=== PATIENT | male | born 1995 | race African-American/Black ===

== ENCOUNTER 2018-02-02 22:29 | Emergency (ER) | payer MEDICAID ==
[~2018-02-02] VITALS: Ht 190.5 cm; Wt 87.5 kg
[2018-02-02 22:39] VITALS: BP 123/66
[2018-02-02 23:16] LABS: Basophils # (auto) 0.1 uL; Basophils % (auto) 2.5 % (0.0-2.0); Eosinophils # (auto) 0.2 uL; Hemoglobin 13.7 g/dL (13.5-17.5); Lymphocytes # (auto) 1.5 uL; Mean Corpuscular Hemoglobin 32.1 pg (28.0-32.0); Mean Corpuscular Hgb Conc. 33.3 g/dL (32.0-36.0); Mean Corpuscular Volume 96.4 fL (80.0-100.0); Monocytes # (auto) 0.5 uL; Monocytes % (auto) 13.1 % (0.0-12.0); Neutrophils # (auto) 1.7 uL; Neutrophils % (auto) 42.4 % (37.0-80.0); Nucleated Red Blood Cells % 0.2 %; Platelet Count (auto) 236 10^3/uL (140-450); Red Blood Cells 4.25 10^6/uL (4.5-5.90); Red Cell Distribution Width 12.7 % (11.8-14.3); White Blood Cell 4.1 10^3/uL (4.4-10.8)
[2018-02-02 23:46] LABS: Albumin 3.9 g/dL (3.4-5.0); Calcium 9.2 mg/dL (8.5-10.1); Potassium 4.3 mmol/L (3.5-5.1)
[2018-02-02 23:51] LABS: Bilirubin, Total 0.6 mg/dL (0.2-1.0); Total Protein 8.1 g/dL (6.4-8.2)
== END 2018-02-03 03:52 | disposition home or self-care (01) ==
LOC: ER 22:36
DX: R74.8 Abnormal levels of other serum enzymes (principal); Z88.6 Allergy status to analgesic agent
CPT/HCPCS: 36415; 80053; 85025

== ENCOUNTER 2022-03-17 20:52 | Inpatient (IN) | payer MEDICAID ==
[~2022-03-17] VITALS: Ht 182.9 cm; Wt 80.3 kg
[2022-03-17] MEDS ORDERED: KETAMINE HCL 10 ML ONE (21:02)
[2022-03-17] MEDS ORDERED: ROCURONIUM 10MG/ML 10ML VIAL IV ONE ×2 (21:02→21:30)
[2022-03-17] MEDS ORDERED: PROPOFOL 100 ML IV ONE (21:10)
[2022-03-17] MEDS ORDERED: PROPOFOL 100 ML IV SCH (21:30)
[2022-03-17] MEDS ORDERED: KETAMINE 50mg/ML 10ml Vial (500mg/10ml) IV ONE (21:30)
[2022-03-17 22:10] LABS: Hematocrit 30.5 % (41.0-53.0); Mean Corpuscular Hemoglobin 30.5 pg (28.0-32.0); Mean Corpuscular Hgb Conc. 29.6 g/dL (32.0-36.0); Mean Corpuscular Volume 103.2 fL (80.0-100.0); Red Blood Cells 2.96 10^6/uL (4.5-5.90); Red Cell Distribution Width 17.1 % (11.8-14.3); White Blood Cell 7.8 10^3/uL (4.4-10.8)
[2022-03-17 22:13] LABS: Band Neutrophils % (manual) 0; Basophils % (manual) 0 (0.0-2.0); Blast Cells 0; Eosinophils % (manual) 0 (0-7); Myelocytes % 0; Promyelocytes % 0; Reactive Lymphocytes 0
[2022-03-17 22:14] LABS: Albumin 1.9 g/dL (3.4-5.0); BUN/Creatinine Ratio 4.4; Calcium 7.9 mg/dL (8.5-10.1); Potassium 3.5 mmol/L (3.5-5.1)
[2022-03-17 22:16] LABS: Bilirubin, Total 0.6 mg/dL (0.2-1.0); Total Protein 7.5 g/dL (6.4-8.2)
[2022-03-17 22:38] LABS: Lymphocytes % (manual) 53 (10.0-50.0); Metamyelocytes % 2; Monocytes % (manual) 2 (0-12)
[2022-03-17] MEDS: LIDOCAINE 4MG/ML IV SOLN 500 ML IV SCH (23:00)
[2022-03-18] VITALS (31 sets, daily range): BP systolic 85–144; BP diastolic 50–93
[2022-03-18] MEDS ORDERED: ONDANSETRON HCL 4 MG/2 ML VIAL IV PRN (00:30)
[2022-03-18] MEDS ORDERED: DOCUSATE SOD 100 MG CAP PO PRN (00:30)
[2022-03-18] MEDS ORDERED: DEXTROSE (50%) 50ML SYRG IV PRN (01:00)
[2022-03-18] MEDS: SODIUM CHLORIDE 0.9% 1,000 ML IV SCH ×2 (01:14→17:10)
[2022-03-18] MEDS: fentaNYL Drip 2500mCg/250mlNS 250 ML IV SCH ×2 (03:39)
[2022-03-18] MEDS ORDERED: ROCURONIUM 10MG/ML 10ML VIAL IV ONE ×2 (04:30)
[2022-03-18] MEDS: InsuLIN REG 1unit/0.01ml Soln (100units/ml) SC SCH ×3 (06:00→17:43)
[2022-03-18] MEDS: ACCU-CHEK COMFORT CURVE STRIP VI SCH ×3 (06:00→17:43)
[2022-03-18 06:47] LABS: Basophils # (auto) 0.1 10 ^3/uL (0-0.2); Basophils % (auto) 0.8 % (0.0-2.0); Eosinophils # (auto) 0 10 ^3/uL (0-0.8); Hemoglobin 7.7 g/dL (13.5-17.5); Lymphocytes # (auto) 1.1 10 ^3/uL (0.4-5.4); Monocytes # (auto) 0.5 10 ^3/uL (0-1.3); Red Blood Cells 2.47 10^6/uL (4.5-5.90); White Blood Cell 6.7 10^3/uL (4.4-10.8)
[2022-03-18 06:49] LABS: Eosinophils % (auto) 0.1 % (0.0-7.0); Hematocrit 23.3 % (41.0-53.0); Lymphocytes % (auto) 16.4 % (10.0-50.0); Mean Corpuscular Hemoglobin 31.3 pg (28.0-32.0); Mean Corpuscular Hgb Conc. 33.2 g/dL (32.0-36.0); Mean Corpuscular Volume 94.3 fL (80.0-100.0); Neutrophils # (auto) 5.1 10 ^3/uL (1.6-8.6); Neutrophils % (auto) 75.7 % (37.0-80.0); Nucleated Red Blood Cells % 0.3 %
[2022-03-18 06:50] LABS: BUN/Creatinine Ratio 4.9; Potassium 3.8 mmol/L (3.5-5.1)
[2022-03-18] MEDS ORDERED: FUROSEMIDE 40 MG/4 ML VIAL IV SCH (10:00)
[2022-03-18 10:13] LABS: Amphetamine Screen, Urine NEGATIVE (NEGATIVE); Barbiturate Scree,Urine NEGATIVE (NEGATIVE); Benzodiazephine Screen, Urine NEGATIVE (NEGATIVE); Cannabinoid Screen, Urine NEGATIVE (NEGATIVE); Cocaine Screen, Urine NEGATIVE (NEGATIVE); Opiate Scree,Urine NEGATIVE (NEGATIVE); Phencyclidine Screen, Urine NEGATIVE (NEGATIVE)
[2022-03-18] MEDS ORDERED: ANGIOMAX 250 MG VIAL IV ONE (12:50)
[2022-03-18] MEDS ORDERED: SODIUM CHL 0.9% 0 ML ONE (12:50)
[2022-03-18] MEDS ORDERED: IODIXANOL 320MG/ML 100ML BTL IV ONE (13:00)
[2022-03-18] MEDS ORDERED: EPINEPHrine HCL 1 MG/10 ML SYRG ONE (13:20)
[2022-03-18] MEDS ORDERED: ATROPINE SULF 1 MG/10ml SYR ONE (13:20)
[2022-03-18] MEDS ORDERED: MIDAZOLAM HCL 2MG/2ML 2ml VIAL (1mg/ml) ONE (13:21)
[2022-03-18] MEDS ORDERED: FURO40TA4 PO (17:12)
[2022-03-18] MEDS ORDERED: SEVE800T10 PO (17:12)
[2022-03-18] MEDS ORDERED: ATOR40TA52 PO (17:12)
[2022-03-18] MEDS ORDERED: LOSA-69 PO (17:12)
[2022-03-19] VITALS (19 sets, daily range): BP systolic 89–121; BP diastolic 55–88
[2022-03-19] MEDS: ACCU-CHEK COMFORT CURVE STRIP VI SCH ×2 (01:00→06:00)
[2022-03-19] MEDS: InsuLIN REG 1unit/0.01ml Soln (100units/ml) SC SCH ×2 (01:00→06:00)
[2022-03-19 01:30] LABS: Basophils # (auto) 0.1 10 ^3/uL (0-0.2); Hemoglobin 8.4 g/dL (13.5-17.5); Monocytes # (auto) 0.6 10 ^3/uL (0-1.3)
[2022-03-19 01:31] LABS: Basophils % (auto) 0.7 % (0.0-2.0); Eosinophils # (auto) 0 10 ^3/uL (0-0.8); Eosinophils % (auto) 0.5 % (0.0-7.0); Hematocrit 26.4 % (41.0-53.0); Lymphocytes # (auto) 1.4 10 ^3/uL (0.4-5.4); Lymphocytes % (auto) 19.1 % (10.0-50.0); Mean Corpuscular Hemoglobin 30.2 pg (28.0-32.0); Mean Corpuscular Hgb Conc. 31.9 g/dL (32.0-36.0); Mean Corpuscular Volume 94.6 fL (80.0-100.0); Monocytes % (auto) 8.7 % (0.0-12.0); Neutrophils # (auto) 5.2 10 ^3/uL (1.6-8.6); Nucleated Red Blood Cells % 0.3 %; Red Blood Cells 2.79 10^6/uL (4.5-5.90); Red Cell Distribution Width 16.5 % (11.8-14.3); White Blood Cell 7.3 10^3/uL (4.4-10.8)
[2022-03-19 01:42] LABS: BUN/Creatinine Ratio 5.2; Calcium 8.4 mg/dL (8.5-10.1); Magnesium 2.2 mg/dL (1.6-2.6); Potassium 4.6 mmol/L (3.5-5.1)
[2022-03-19] MEDS: LIDOCAINE 4MG/ML IV SOLN 500 ML IV SCH (02:27)
[2022-03-19] MEDS ORDERED: ALBUMIN 25% 100 ML IV PRN (09:30)
[2022-03-19] MEDS ORDERED: NOREPINEPHRINE 8 MG/250ML KIT 250 ML IV SCH (09:30)
[2022-03-19] MEDS ORDERED: SODIUM CHL 0.9% 1000 ML BAG XX ONE (10:30)
[2022-03-19] MEDS ORDERED: VANCOMYCIN 1GM/250ML 250 ML IV ONE (11:00)
[2022-03-19] MEDS ORDERED: IBUPROFEN 400 MG TAB PO PRN (11:30)
[2022-03-19] MEDS ORDERED: METOPROLOL SUCCINATE XL 50 MG TAB PO ONE (11:45)
[2022-03-19] MEDS: AMIODARONE HCL 200 MG TAB PO SCH ×2 (15:00→22:18)
[2022-03-19] MEDS ORDERED: EPOETIN ALFA-EPBX 10,000 UNIT/1ML VIAL SC ONE (21:00)
[2022-03-19] MEDS: ATORVASTATIN 20 MG TAB PO SCH (22:18)
[2022-03-20] VITALS (7 sets, daily range): BP systolic 98–119; BP diastolic 56–75
[2022-03-20 04:52] LABS: Calcium 8.4 mg/dL (8.5-10.1); Potassium 3.8 mmol/L (3.5-5.1)
[2022-03-20 04:54] LABS: BUN/Creatinine Ratio 4.7
[2022-03-20 05:03] LABS: Hemoglobin 7.6 g/dL (13.5-17.5)
[2022-03-20 05:05] LABS: Hematocrit 24.2 % (41.0-53.0); Mean Corpuscular Hgb Conc. 31.6 g/dL (32.0-36.0); Mean Corpuscular Volume 94.8 fL (80.0-100.0); Red Blood Cells 2.55 10^6/uL (4.5-5.90); White Blood Cell 6.1 10^3/uL (4.4-10.8)
[2022-03-20 05:16] LABS: Basophils % (manual) 0 (0.0-2.0); Blast Cells 0; Eosinophils % (manual) 0 (0-7); Metamyelocytes % 0; Promyelocytes % 0; Reactive Lymphocytes 0
[2022-03-20 09:22] LABS: Band Neutrophils % (manual) 1; Lymphocytes % (manual) 31 (10.0-50.0); Monocytes % (manual) 5 (0-12); Myelocytes % 1
[2022-03-20] MEDS: AMIODARONE HCL 200 MG TAB PO SCH ×2 (10:10→22:49)
[2022-03-20] MEDS: LOSARTAN POTASSIUM 50 MG TAB PO SCH (10:10)
[2022-03-20] MEDS: METOPROLOL SUCCINATE XL 50 MG TAB PO SCH (10:10)
[2022-03-20] MEDS: ATORVASTATIN 20 MG TAB PO SCH (22:49)
[2022-03-21] MEDS ORDERED: SODIUM CHL 0.9% 1000 ML BAG XX ONE (04:30)
[2022-03-21 05:00] VITALS: BP 117/70
[2022-03-21 08:00] VITALS: BP 149/79
[2022-03-21 08:29] LABS: Red Cell Distribution Width 16.5 % (11.8-14.3); White Blood Cell 8.9 10^3/uL (4.4-10.8)
[2022-03-21 08:30] LABS: Hematocrit 25.7 % (41.0-53.0); Hemoglobin 7.9 g/dL (13.5-17.5); Mean Corpuscular Hemoglobin 29.3 pg (28.0-32.0); Mean Corpuscular Hgb Conc. 30.9 g/dL (32.0-36.0); Mean Corpuscular Volume 95.1 fL (80.0-100.0)
[2022-03-21 08:33] LABS: Basophils % (manual) 0 (0.0-2.0); Blast Cells 0; Eosinophils % (manual) 0 (0-7); Metamyelocytes % 0; Myelocytes % 0; Promyelocytes % 0
[2022-03-21 08:43] LABS: Calcium 8.4 mg/dL (8.5-10.1); Potassium 3.8 mmol/L (3.5-5.1)
[2022-03-21 08:45] LABS: BUN/Creatinine Ratio 4.5
[2022-03-21 09:12] LABS: Band Neutrophils % (manual) 6; Lymphocytes % (manual) 26 (10.0-50.0); Monocytes % (manual) 4 (0-12); Reactive Lymphocytes 1
[2022-03-21] MEDS: LOSARTAN POTASSIUM 50 MG TAB PO SCH (09:34)
[2022-03-21] MEDS: AMIODARONE HCL 200 MG TAB PO SCH ×2 (09:35→21:23)
[2022-03-21] MEDS: METOPROLOL SUCCINATE XL 50 MG TAB PO SCH (09:35)
[2022-03-21] MEDS ORDERED: PENICILLIN G BENZ 1200000 UNITS/2 ML SYRG IM SCH (11:15)
[2022-03-21 12:00] VITALS: BP 108/74
[2022-03-21 16:00] VITALS: BP 95/68
[2022-03-21] MEDS: ATORVASTATIN 20 MG TAB PO SCH (21:23)
[2022-03-21 22:00] VITALS: BP 94/57
[2022-03-22 05:00] VITALS: BP 106/68
[2022-03-22 07:20] LABS: BUN/Creatinine Ratio 5.6; Calcium 8.2 mg/dL (8.5-10.1)
[2022-03-22] MEDS: METOPROLOL SUCCINATE XL 50 MG TAB PO SCH (08:35)
[2022-03-22] MEDS: AMIODARONE HCL 200 MG TAB PO SCH ×2 (08:37→22:00)
[2022-03-22] MEDS: LOSARTAN POTASSIUM 50 MG TAB PO SCH (08:37)
[2022-03-22 09:26] VITALS: BP 98/61
[2022-03-22 12:57] VITALS: BP 103/59
[2022-03-22 16:15] VITALS: BP 96/54
[2022-03-22] MEDS: ATORVASTATIN 20 MG TAB PO SCH (21:25)
[2022-03-22 22:00] VITALS: BP 110/71
[2022-03-23 05:00] VITALS: BP 105/59
[2022-03-23 05:30] LABS: Basophils # (auto) 0 10 ^3/uL (0-0.2); Eosinophils # (auto) 0.1 10 ^3/uL (0-0.8); Hemoglobin 7.6 g/dL (13.5-17.5)
[2022-03-23 05:32] LABS: Basophils % (auto) 0.2 % (0.0-2.0); Eosinophils % (auto) 1.9 % (0.0-7.0); Hematocrit 23.8 % (41.0-53.0); Lymphocytes # (auto) 1.6 10 ^3/uL (0.4-5.4); Lymphocytes % (auto) 31.4 % (10.0-50.0); Mean Corpuscular Hemoglobin 30.1 pg (28.0-32.0); Mean Corpuscular Hgb Conc. 31.8 g/dL (32.0-36.0); Mean Corpuscular Volume 94.7 fL (80.0-100.0); Monocytes # (auto) 0.5 10 ^3/uL (0-1.3); Monocytes % (auto) 10.5 % (0.0-12.0); Neutrophils # (auto) 2.9 10 ^3/uL (1.6-8.6); Nucleated Red Blood Cells % 0.6 %; Red Blood Cells 2.51 10^6/uL (4.5-5.90); Red Cell Distribution Width 16.2 % (11.8-14.3); White Blood Cell 5.1 10^3/uL (4.4-10.8)
[2022-03-23 05:55] LABS: BUN/Creatinine Ratio 5.6; Calcium 8.1 mg/dL (8.5-10.1)
[2022-03-23 09:11] VITALS: BP 103/61
[2022-03-23] MEDS: AMIODARONE HCL 200 MG TAB PO SCH ×2 (09:52→21:03)
[2022-03-23] MEDS: LOSARTAN POTASSIUM 50 MG TAB PO SCH (09:54)
[2022-03-23] MEDS: METOPROLOL SUCCINATE XL 50 MG TAB PO SCH (09:54)
[2022-03-23 13:00] VITALS: BP 96/60
[2022-03-23 17:00] VITALS: BP 92/62
[2022-03-23] MEDS: ATORVASTATIN 20 MG TAB PO SCH (21:03)
[2022-03-23 22:00] VITALS: BP 107/66
[2022-03-24 05:00] VITALS: BP 112/73
[2022-03-24 09:00] VITALS: BP 110/73
[2022-03-24] MEDS: AMIODARONE HCL 200 MG TAB PO SCH (10:46)
[2022-03-24] MEDS: LOSARTAN POTASSIUM 50 MG TAB PO SCH (10:47)
[2022-03-24] MEDS: METOPROLOL SUCCINATE XL 50 MG TAB PO SCH (10:48)
[2022-03-24] MEDS ORDERED: SODIUM CHL 0.9% 1000 ML BAG XX ONE (11:00)
[2022-03-24 13:00] VITALS: BP 96/58
[2022-03-24] MEDS ORDERED: METO-6 PO (13:15)
[2022-03-24] MEDS ORDERED: AMIO200T33 PO (13:15)
[2022-03-24 14:39] LABS: Hepatitis A Ab IgM Negative; Hepatitis B Core IgM Negative
[2022-03-24 14:40] LABS: Hepatitis C Antibody Negative (Negative)
[2022-03-24 17:00] VITALS: BP 105/75
== END 2022-03-24 17:00 | disposition home or self-care (01) | DRG 190 ==
LOC: EDUNIT# 20:52 → EDBD 20:52 → ER 20:58 → TELE 03-18 00:34 → ICU WEST 03-18 15:30 → TELE-WESTW 03-19 23:36
PROVIDERS: ADMIT Hospitalist; ATTEND Internal Medicine Pulmonary Disease
PROC: 02HV33Z Insertion of Infusion Device into Superior Vena Cava, Percutaneous Approach (ICD-10-PCS; 2022-03-17)
PROC: 0BH17EZ Insertion of Endotracheal Airway into Trachea, Via Natural or Artificial Opening (ICD-10-PCS; 2022-03-17)
PROC: 5A1935Z Respiratory Ventilation, Less than 24 Consecutive Hours (ICD-10-PCS; principal; 2022-03-18)
PROC: 4A023N7 Measurement of Cardiac Sampling and Pressure, Left Heart, Percutaneous Approach (ICD-10-PCS; 2022-03-18)
PROC: B211YZZ Fluoroscopy of Multiple Coronary Arteries using Other Contrast (ICD-10-PCS; 2022-03-18)
PROC: 5A1D70Z Performance of Urinary Filtration, Intermittent, Less than 6 Hours Per Day (ICD-10-PCS; 2022-03-19)
PROC: 5A1D70Z Performance of Urinary Filtration, Intermittent, Less than 6 Hours Per Day (ICD-10-PCS; 2022-03-21)
DX: I21.4 Non-ST elevation (NSTEMI) myocardial infarction (principal); J96.01 Acute respiratory failure with hypoxia; I46.9 Cardiac arrest, cause unspecified; I13.2 Hypertensive heart and chronic kidney disease with heart failure and with stage 5 chronic kidney disease, or end stage renal disease; N18.6 End stage renal disease; I47.20 Ventricular tachycardia, unspecified; B20 Human immunodeficiency virus [HIV] disease; I42.0 Dilated cardiomyopathy; Z20.822 Contact with and (suspected) exposure to COVID-19; I50.9 Heart failure, unspecified; E78.5 Hyperlipidemia, unspecified; F41.9 Anxiety disorder, unspecified; I49.9 Cardiac arrhythmia, unspecified; I10 Essential (primary) hypertension; I48.91 Unspecified atrial fibrillation; Z88.6 Allergy status to analgesic agent; Z88.8 Allergy status to other drugs, medicaments and biological substances; Z79.899 Other long term (current) drug therapy; Z91.199 Patient's noncompliance with other medical treatment and regimen due to unspecified reason; Z99.2 Dependence on renal dialysis
CPT/HCPCS: 31500; 36415; 36600; 71045; 80048; 80053; 80074; 80307; 82805; 82962; 83735; 83880; 84484; 85007; 85025; 85027; 87040; 87070; 87077; 87081; 87086; 87186; 87205; 87426; 90935; 93005; 93306; 93458; 94002; 94003; 96365; 99152; 99291; A4565; G0378; J0561; J1642; J2250; J2704; P9047; Q9967